=== PATIENT | female | born 1985 | race Asian ===

== ENCOUNTER 2024-12-23 18:06 | Emergency (ER) | payer OTHER, SELFPAY ==
[2024-12-23 18:13] VITALS: BP 101/71
[2024-12-23 21:31] VITALS: BMI 30.1
[2024-12-23 21:33] VITALS: BP 118/75
[2024-12-23 21:34] VITALS: BP 118/75
[2024-12-23 22:00] VITALS: BP 113/73
[2024-12-23] MEDS: TYLENOL 650 MG PO (22:04)
--- NOTE | 2024-12-23 22:30 | ED.GENMED ---
History of Present Illness
General
Chief Complaint: Cold/Flu/URI Symptoms
Source: patient and spouse
Exam Limitations: none
Time Seen by Provider: 12/23/24 22:03
Nursing documentation reviewed up to this point in time: agreed with
History of Present Illness
History of Present Illness:
This is a 39-year-old woman who has longstanding history of migraine headaches. Reports unremarkable workup for her migraine headaches while residing in [place] including unremarkable CT of the head. Was prescribed Imitrex while residing in [place]
which she reports mild to moderate improvement in headaches. Since relocating to the [facility] 4 years ago, she admits that she has not established with a PCP, has not followed up with any specialist for her migraines.
She admits that her headaches are quite frequent generally for headaches per week. She has been taking [id number] Excedrin Migraine along with resting her eyes, quiet dark room which generally improves her headaches.
Beginning 2 days ago she started with URI symptoms, cough, congestion, fever, aches. Cough has improved with [id number] Robitussin. Her daughter had similar URI symptoms but her symptoms resolved within 24 hours.
Patient was evaluated at urgent care where she underwent unremarkable COVID, influenza testing which were negative. Unremarkable laboratory studies with white blood cell count of 4.6, normal H&H. Unremarkable chemistries and unremarkable EKG.
Due to complaints of neck pain patient sent to the ED for further evaluation.
Her last dose of ibuprofen was at 2 PM.
She denies sore throat, no nausea or vomiting. No weakness or numbness.
Past History
Past History
ED Past Medical History: Other (Migraine headaches)
ED Past Surgical History: (X 2)
Social History
Tobacco: Non-smoker
Alcohol: None
Personal:
Living: with family (Resides at home with her , 2 daughters age 14 and 10)
Employment: Student (Full-time student; also working in an restaurant management internship)
Family History
Family History: Other (Noncontributory)
Phy Exam
Physical Exam
Physical Exam:
GENERAL: 39-year-old woman appears her stated age, awake and alert, pleasant, easily communicative and in no acute distress. is accompanying. Low-grade fever noted 100.5 �F.
EYE: pupils equal and reactive. Extraocular muscles intact anicteric
NECK: Supple, nontender, no meningismus, no significant adenopathy. Mild bilateral superior trapezius muscle spasm with mild local tenderness to palpation.
ENT: posterior pharynx is clear, oral mucosa is moist. TM clear b/l, nares have mildly boggy turbinates with scant clear rhinorrhea.
CARDIAC: Regular rate and rhythm. no murmur.
LUNGS: Clear breath sounds bilaterally, no acute respiratory distress, no wheezes/rales/rhonchi
ABDOMEN: Soft, nondistended, without focal tenderness, no r/g, no cvat. normoactive BS.
NEUROLOGICAL: Alert and oriented x3, no focal neuro deficits. Gait is rutherford and steady.
SKIN: Warm and dry, normal color, skin intact. No rash.
MUSCULOSKELETAL: No C/C/E. peripheral pulses are full and equal b/l. No palpable tenderness.
PSYCH: Normal and appropriate interaction.
Course
Orders/Labs/Results
Orders:
Orders
12/23/24 18:20
ECG [Electrocardiogram (*1)] Urgent
Reason for Study: Abnormal EKG
12/23/24 18:21
EKG- Treatment ONCE
12/23/24 22:01
Acetaminophen [Tylenol] 650 mg PO NOW STA
12/23/24 22:30
Ibuprofen [Motrin] 600 mg PO NOW STA
Vital Signs
Initial and Last Documented VS:
Initial Vital Signs
Temp Pulse Resp BP Pulse Ox
98.1 F 99 20 101/71 99
12/23/24 18:13 12/23/24 18:13 12/23/24 18:13 12/23/24 18:13 12/23/24 18:13
Last Documented Vital Signs
Temp Pulse Resp BP Pulse Ox
100.3 F 85 16 113/73 100
12/23/24 21:34 12/23/24 21:34 12/23/24 21:34 12/23/24 22:00 12/23/24 22:15
MDM/Problems Addressed
Differential Diagnosis Includes:
2-day history of URI symptoms. Appears viral in nature.
Reassuring laboratory studies from urgent care as well as negative flu and COVID testing.
Overall nontoxic in appearance. Low-grade fever noted.
Complains of mild posterior neck discomfort overall improving without meningismus. URI symptoms improving as well.
Overall not convincing for meningitis.
Patient has a longstanding history of migraine headaches, unremarkable neurologic workup while residing in [facility] 4 years ago.
Admits to frequent headaches generally 4/week. Current headache similar to her chronic migraine headaches and overall patient is nontoxic in appearance. No worrisome associated symptoms.
Recommend supportive measures for viral URI, continuing ibuprofen as needed for fever, aches, headache.
Discussed importance of staying well-hydrated on a daily basis.
Ultimately patient will require establishment with a PCP and I have referred her to our family practice residency clinic. Discussed various options for migraine headaches including daily preventative medications. This can be discussed further with
PCP.
Prescription for ibuprofen has been provided.
Return precautions discussed.
Chronic conditions affecting care: Neurological disorder (Migraine headaches)
*Pulse Oximetry
Patient hypoxic: no
*EKG
Interpreted by ED Provider?: Yes
Interpretation: normal
Comparison EKG: no comparison EKG present
Rate: normal
Rhythm: sinus
[place]: normal axis
Interval: normal interval
QRS Pattern: normal QRS
Ischemia: no ischemia
*Critical Care Note
Total Time (30-74mins, 75-104mins- exclusive of procedures): Not Applicable
ED Attending Note
-
Portions of this chart may have been created with voice recognition software.� Occasional wrong word or��sound alike� substitutions may have occurred due to the inherent limitations of voice recognition software.
Discharge Plan
Departure
Patient Disposition: Home (Routine Discharge)
Date of Disposition: 12/23/24
Time of Disposition: 22:34
Patient with high blood pressure during this ER visit?: No
Condition: Good
Discharge Problem:
Upper respiratory infection, viral, Chronic migraine without aura
Instructions: Viral Upper Respiratory Infection, Adult (DC), Migraine in adults, How to Keep Track of Your Headaches
Prescriptions:
New
ibuprofen 600 mg tablet
600 mg PO QID PRN (Reason: fever or pain) Qty: 20 0RF
Referrals:
[facility] [Provider Group] - Call in 1-3 days for appt
Interventions
Interventions:
*Risk Screen - Suicide Last Done: 12/23/24 18:13
*General Assessment Last Done: 12/23/24 21:36
*Neglect/Abuse Screening Last Done: 12/23/24 22:55
ED- Fall Risk Assessment Last Done: 12/23/24 21:39
*ED COVID-19 Vaccine History Last Done: 12/23/24 21:35
*Nursing Disposition Last Done: 12/23/24 22:55
ED- Pulmonary Assessment Last Done: 12/23/24 21:39
Discharge Date and Time
Discharge Date/Time: 12/23/24 22:59
Print Language: [place]
[2024-12-23] MEDS: MOTRIN 600 MG PO (22:46)
== END 2024-12-23 22:59 | disposition home or self-care (01) ==
LOC: EMR 18:06
PROVIDERS: EMERGENCY PHYSICIAN Emergency Medicine
DX: G43.709 Chronic migraine without aura, not intractable, without status migrainosus (principal); J06.9 Acute upper respiratory infection, unspecified
CPT/HCPCS: 99283; 93005